=== PATIENT | male | born 1995 | race Two or more races ===

== ENCOUNTER → 2017-03-17 | Outpatient (CLI) | payer OTHER ==
--- NOTE | 2017-03-17 14:18 | KCIC ---
PROCEDURE CT of the head without contrast HISTORY Headache. Weakness. Injury 2 days ago. TECHNIQUE Standard noncontrast images. Exposure: One or more of the following individualized dose reduction techniques were utilized for this exam: 1. Automated exposure control. 2. Adjustment of the mA and/or kV according to patient size. 3. Use of iterative reconstruction technique. COMPARISON None FINDINGS No evidence of acute intracranial hemorrhage or abnormal extra-axial fluid collection. Foreman-white matter distinction is maintained. Ventricles and sulci are symmetric. No evidence of mass effect or midline shift. Partially included sinuses are clear. Orbits appear unremarkable. No evidence of a depressed skull fracture IMPRESSION No evidence of acute intracranial abnormality. Consider follow up with MR brain if symptoms persist. Electronically signed by: Osmany Bishop MD (Mar 17, 2017 14:17:21)
== END | disposition home or self-care (01) ==
LOC: KCIC CT 12:46
PROVIDERS: ATTEND Physical Medicine & Rehabilitation
DX: R51 Headache (principal); R53.1 Weakness
CPT/HCPCS: 70450